=== PATIENT | female | born 1960 | race Asian ===

== ENCOUNTER 2024-11-15 14:55 | Outpatient (AMB) | payer OTHER, SELFPAY ==
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
[2024-11-15 15:04] VITALS: BP 140/82; PULSE 90; O2SAT 96; BMI 32.4
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
--- OUTSIDE RECORDS SUMMARY | 2024-11-15 16:03 | XMS_ITS ---
Author Name [facility] Organization Unknown Care Team Organization Name Specialty Phone Email Start Date End Da te [facility] JENNIFER PRICE Primary Care 07/19/2022 10/31/2023
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
--- OUTSIDE RECORDS SUMMARY | 2024-11-15 16:03 | XMS_ITS | Patient Health Record ---
Author Organization [facility] Address [address] [facility] [address] [place] [address] Care Team Providers Care Marketing Development Specialist Name Role Phone DR JEANA SONG M.D. Primary Care Provider Unavail able Rody Huffman Unavailable [phone] Allergies Allergen (clinical drug ingredient) Drug/Non Drug Allergy documented on EMR Reaction Allergy Type Onset Date Status PENICILLIN Unknown Drug Allergy Active Reason For Referral No Information Medications Medication SIG (Take, Route, Frequency, Duration) Notes Start Date End Date Status Estradiol Vaginal Cream 0.1% 1 Gram Vaginally Twice a week 08/19/2017 Active Estrace 0.1 MG/GM 1 GRAM Vaginal TWICE A WEEK INTRAVAGINALLY AND Q OTHER HS ALONG INTROITUS; Duration: 90 days 08/13/2016 Active traMADol HCl 50 MG 1 tablet as needed O rally every 6 hrs Active Meloxicam 7.5 MG 1 tablet Orally Once a day NEEDED Active Levoxyl 1 ORAL daily; Durati on: -3 Fernando-MJ 08/15/2013 Active Lidocaine 5 % 1 application to aff ected area as needed Externally Three times a day as needed; Duration: 10 days 10/27/2016 Active Temovate 0.05 % 1 application to aff ected area Externally ONCE DAILY; Duration: 30 days 09/22/2016 Active Latanoprost 0.005 % 1 drop into affected eye in the evening Ophthalmic Once a day Active Social History Tobacco Use: Social History Observation Description Date Details (start date - stop date) Never Smoker NA - NA Tobacco Use/Smoking Question Answer Notes Are you a nonsmoker Alcohol Screen (Audit-C) Question Answer Notes Did you have a drink contain ing alcohol in the past year? Yes Points 1 Interpretation Negative How many drinks did you have on a typical day when you were drinking in the past year? 1 or 2 drinks (0 point) How often did you have a dri nk containing alcohol in the past year? Monthly or less (1 point) Sexual History Question Answer Notes Had sex in the past 12 months (vaginal, oral, or anal)? Yes Prevention strategies discussed: Other with Men only Section Notes: MARITAL STATUS: CHILDREN: 2 Children LIVES WITH: n/a OCCUPATION: employed full-time NUTRITION: average diet EXERCISE: occasional walking SEXUAL ACTIVITY: not sexually active CONTRACEPTION: menopause .CE: Smoking: Never a smoker .CE: ALCOHOL: socially drinks alcohol TEXT MESSAGING WHILE DRIVING: no SUNSCREEN: yes ILLICIT DRUGS: no SEATBEALT: yes Problems Problem Type SNOMED Code ICD Code Onset Dates Problem Status W/U Status Risk Notes Problem Postmenopausal atrophic vaginitis (10178352) Postmenopausal atrophic vaginitis (N95.2) Active confirmed Problem Localized morphea (412509375) Lichen sclerosus et atrophicus (L90.0) Active confirmed Problem Atrophy of vulva (606863607) Atrophy of vulva (N90.5) Active confirmed Problem Postmenopausal bleeding (45943592) Postmenopausal bleeding (627.1) Active confirmed Diag Problem Gynecological examination normal (021405593075283) Routine gynecological examination (V72.31) Active confirmed Major Problem Screening for malignant neoplasm of colon (219230135) Special screening for malignant neoplasms, colon (V76.51) Active confirmed Major Plan Of Treatment Pending Test Test Name Order Date MM Digital Mammo Screening 08/13/2016 MM Digital Mammo Screening 08/19/2017 Insurance Providers Payer Name Payer Address Payer Phone Subscriber Number Group Number Insured Name Patient Relationship to Insured Coverage Start Date Coverage End Date MEDICARE [address] HRONDA Lawrence HARRY [id number] MITUL BRISCOE Self - patient is the insured Medical (General) History Medical History History ICD Code Postmenopausal bleeding N95.0 Postmenopausal atrophic vaginitis N95.2 Von Willebrand's disease D68.0 Vitiligo L80 Hypothyroidism, unspecified E03.9 Lichen sclerosus et atrophicus L90.0 Ulceration of vulva N76.6 Surgical History Surgery Date(Month/Year) x 1 ACL Repair Bilateral Knee Replacement 2014 Bilateral Eye Surgery 08/2016 Vulvar Biopsy 09/17/16 Hospitalization History Reason Date(Month/Year) 1 Vaginal Delivery See Surgical Hx
== END 2024-11-15 16:05 | disposition home or self-care (01) ==
LOC: HO.HSMS 14:55
PROVIDERS: PCP Internal Medicine; Visit Provider Psychiatry & Neurology Neurology
DX: G25.81 Restless legs syndrome (principal); R06.83 Snoring; G47.10 Hypersomnia, unspecified; G47.26 Circadian rhythm sleep disorder, shift work type
CPT/HCPCS: 99204; G2211

== ENCOUNTER → 2024-12-14 20:30 | Outpatient (REF) | payer OTHER, SELFPAY ==
--- OUTSIDE RECORDS SUMMARY | 2024-12-14 21:56 | XMS_ITS | Clinical Summary ---
Author Organization [facility] Address [address] [address] Phone Care Team Providers Care Java Development Team Lead Name Role Phone Angella Esparza MD Primary [...] 5 mg by mouth as needed. 11/04/19 23 Active gabapentin (NEURONTIN) 300 MG capsule Take 300 mg by mouth as needed. 11/04/19 Active tiZANidine (ZANAFLEX) 4 MG tablet Take 1 tablet by mouth 3 (three) times a day. 07/29/19 23 Active blood-glucose sensor (FREESTYLE HYACINTH 3 SENSOR) Lisa Use as direceted every 2 weeks 2 each 03/21/19 24 Active Additional Information Patient not taking.Reported on [...] daily. 90 tablet 3 11/08/19 25 Active Active Problems Problem Noted Date Diagnosed Date Age-related osteoporosis wit hout current pathological fracture 11/09/2024 Assessment & Plan [...] exercises - [place]20[place] [facility] [place]normal bone density screening 05/28/2024 Assessment & Plan (05/31/2024 7:29 PM EDT): Patient reports abnormal DEXA screening done recently at [facility] [place] and was recommended to see legal officer by PCP. DEXA report not available so [...] on fine-tuning meal plan, has appointment with medical educator today -Planning to go back to [...] She will contact her GI specialist at [facility] because of more recent stomach issues with history of stomach ulcers in the past. Up-to-date with eye exam, denies retinopathy. Recommended patient to use Flexitol foot cream and consider seeing animal care provider for callus care. Assessment & Plan (03/25/2023 9:45 PM EST): Long history of prediabetes progressed to diabetes by early 2022. Plan was to start Rybelsus after last visit in 11/2022 but patient never received the prescription. Because of her work schedule she could not meet the medical educator. She has improved her diet and [...] education, referral placed to our educators at [facility]. Discussed pathophysiology of diabetes and complications [...] is not available, patient will request her [facility] records. Encounters Date Type Department Care Team Description 11/07/2024 11:00 AM EDT Nutrition [facility] [address] [place] [address] [place] [address] Bettie Gaines MD Dawicki, MARTHA Waite Controlled type 2 diabetes mellitus without complication, without long-term current use of insulin (Primary Dx) 11/07/2024 10:00 AM EDT Office Visit [facility] [address] [place] [address] [place] [address] Bettie Gaines MD Controlled type 2 diabetes mellitus without complication, without long-term current use of insulin (Primary Dx); Acquired hypothyroidism; Age-related osteoporosis without current pathological fracture 11/06/2024 9:44 AM EDT - 11/06/2024 11:59 PM EDT Hospital Encounter [facility] [address] [place] [address] Bettie Gaines MD Discharge Disposition: Home or [...] Info) Description 04/09/2025 11:00 AM EST Nutrition [facility] [address] [place] [address] Eryn Washburn LDN [address] [place] [address] 06/11/2025 10:20 AM EDT Office Visit [facility] [address] [place] [address] Bettie Gaines MD [address] [place] [address] [email or web address] Health Maintenance Due Date Last Done Comments [...] type 1b-telopeptide, blood (11/06/2024 9:45 AM EDT) Collagen CTx 504 pg/mL [facility] MED/[facility] Comment: (NOTE) REFERENCE VALUE 148-967 (18-29 y) 150-635 (30-39 y) 131-670 (40-49 y) 183-1060 (50-59 y) 171-970 (60-69 y) 152-858 (>70 y) 136-689 (Premenopausal) 177-1015 (Postmenopausal) Flagging is based on the age-specific reference interval and not menopausal status. Blood 11/06/2024 9:45 AM EDT 11/06/2024 9:54 AM EDT us Bettie Gaines MD LAB BLOOD ORDERABLES Final Res ult [facility] MED[facility] [address] [place] [address] * Comprehensive metabolic panel (11/06/2024 9:45 AM EDT) SODIUM 135 133 - 146 mmol/L [facility] POTASSIUM 3.6 3.3 - 5.1 mmol/L [facility] CHLORIDE 98 96 - 108 mmol/L [facility] CO2 25 21 - 35 mmol/L [facility] BUN 18 6 - 19 mg/dL [facility] CREATININE 0.50 0.5 - 1.5 mg/dL [facility] GLUCOSE 96 70 - 99 mg/dL [facility] ALBUMIN 4.0 3.9 - 4.8 g/dL [facility] TOTAL PROTEIN 7.6 6.5 - 8.0 g/dL [facility] CALCIUM 9.5 8.4 - 10.3 mg/dL [facility] ALKALINE PHOSPHATASE 103 39 - 117 U/L [facility] TOTAL BILIRUBIN 0.7 0.0 - 1.2 mg/dL [facility] AST 19 0 - 37 U/L [facility] ALT 19 0 - 40 U/L [facility] GLOBULIN 3.6 1 - 4.8 g/dL [facility] EGFR 103 >59 mL/min/1.7 3m2 [facility] Comment:Estimated glomerular filtration rate calculated using the CKD-EPI refit equation. ANION GAP 16 10 - 20 mmol/L [facility] Blood 11/06/2024 9:45 AM EDT 11/06/2024 9:54 AM EDT us Bettie Gaines MD LAB BLOOD ORDERABLES Final Res ult Performing Organization Address City/[facility]/ZIP Co de Phone Number [address] [address] * TSH with reflex (11/06/2024 9:45 AM EDT) TSH 2.23 0.27 - 4.20 uIU/mL [facility] Blood 11/06/2024 9:45 AM EDT 11/06/2024 9:54 AM EDT us Bettie Gaines MD LAB BLOOD ORDERABLES Final Res ult Performing Organization Address [facility] Co de Phone Number [address] [address] * 25-OH vitamin D (11/06/2024 9:45 AM EDT) 25 [place] VIT D (TOTAL) 34 30 - 60 ng/mL [facility] Blood 11/06/2024 9:45 AM EDT 11/06/2024 9:54 AM EDT us Bettie Gaines MD LAB BLOOD ORDERABLES Final Res ult Performing Organization Address City/[facility]/ZIP Co de Phone Number [address] [address] * Phosphorus (11/06/2024 9:45 AM EDT) PHOSPHORUS 3.9 2.7 - 4.5 mg/dL [facility] Blood 11/06/2024 9:45 AM EDT 11/06/2024 9:54 AM EDT us Bettie Gaines MD LAB BLOOD ORDERABLES Final Res ult Performing Organization Address City/[facility]/ZIP Co de Phone Number [address] [address] * Parathyroid hormone (PTH) (11/06/2024 9:45 AM EDT) PARATHYROID HORMONE 44 15 - 65 pg/mL [facility] Blood 11/06/2024 9:45 AM EDT 11/06/2024 9:53 AM EDT us Bettie Gaines MD LAB BLOOD ORDERABLES Final Res ult Performing Organization Address [facility]/ZIP Co de Phone Number [address] [address] * (ABNORMAL) Hemoglobin A1c (11/06/2024 9:45 AM EDT) HEMOGLOBIN A1C 6.3(H) 4.3 - 5.8 % [facility] Blood 11/06/2024 9:45 AM EDT 11/06/2024 9:54 AM EDT us Bettie Gaines MD LAB BLOOD ORDERABLES Final Res ult Performing Organization Address City/[facility]/ZIP Co de Phone Number [address] [address] from Last 3 Months Insurance O MEDICARE A MEDICARE A MEDICARE A [address] [place], [place] [id number] MEDICARE A MEDICARE A MEDICARE A Care Teams Java Development Team Lead Relationship Specialty Start Date End Date Angella Esparza MD [address] [place] [address] PCP - General Internal Medicine 06/21/22 Additional Source Comments The information contained in this document represents components of the legal health record. It is not the complete legal health record.[facility]
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
--- OUTSIDE RECORDS SUMMARY | 2024-12-14 21:57 | XMS_ITS | Patient Health Record ---
Author Organization [facility] Address [address] [address] Care Team Providers Care Animal Biologist Name Role Phone DR JEANA SONG M.D. Primary Care Provider Unavail able Rody Huffman Unavailable [phone] Allergies Allergen (clinical drug ingredient) Drug/Non Drug [...] Status Risk Notes Problem Postmenopausal atrophic vaginitis (03285920) Postmenopausal atrophic vaginitis (N95.2) Active confirmed Problem Localized morphea (852036137) Lichen sclerosus et atrophicus (L90.0) Active confirmed Problem Atrophy of vulva (437411087) Atrophy of vulva (N90.5) Active confirmed Problem Postmenopausal bleeding (67932238) Postmenopausal bleeding (627.1) Active confirmed Diag Problem Gynecological examination normal (583850053573324) Routine gynecological examination (V72.31) Active confirmed Major Problem Screening for malignant neoplasm of colon (291562723) Special screening for malignant neoplasms, colon (V76.51) Active confirmed Major Plan Of Treatment Pending Test Test Name Order Date MM Digital Mammo Screening 08/13/2016 MM Digital Mammo Screening 08/19/2017 Insurance Providers Payer Name Payer Address Payer Phone Subscriber Number Group Number Insured Name Patient Relationship to Insured Coverage Start Date Coverage End Date MEDICARE [address] RHONDA Lawrence HARRY [id number] MITUL BRISCOE Self - patient is the [...]
== END ==
LOC: HO.SL 20:30
PROVIDERS: Visit Provider Psychiatry & Neurology Neurology
DX: R06.83 Snoring (principal); R25.2 Cramp and spasm; G47.10 Hypersomnia, unspecified
CPT/HCPCS: 95806